=== PATIENT | female | born 1955 | race Caucasian/White ===

== ENCOUNTER 2021-03-08 19:39 | Emergency (ER) | payer MEDICARE, MEDICAID ==
[~2021-03-08] VITALS: Ht 167.6 cm; Wt 52.0 kg
--- NOTE | 2021-03-08 20:04 | NUR ---
[id number]
--- NOTE | 2021-03-08 21:16 | NUR ---
NIL X2
--- NOTE | 2021-03-08 21:28 | NUR ---
NIL X3
[2021-03-08 22:53] VITALS: BP 162/103
--- NOTE | 2021-03-08 22:56 | NUR ---
PT TO TRIAGE DOOR STATES "I MUST HAVE NOT HEARD MY NAME CALLED, I HAVE BEEN WAITING THIS WHOLE TIME." PT TRAIGED AND SEEN BY PROVIDER IN TRIAGE. RETURNED TO WAITING ROOM, AWAITING ROOM ASSIGNMENT.
--- NOTE | 2021-03-08 23:43 | NUR ---
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
== END 2021-03-08 21:30 | disposition home or self-care (01) ==
LOC: ED 20:09
DX: M79.661 Pain in right lower leg (principal)
CPT/HCPCS: 99284